=== PATIENT | male | born 1965 | race Caucasian/White ===

== ENCOUNTER → 2023-04-01 | Outpatient (CLI) | payer OTHER, SELFPAY ==
--- NOTE | 2023-04-01 09:53 | PFTCOMP_ITS ---
COMPLETE PULMONARY FUNCTION TEST INTERPRETATION Brief HPI: Patient is a 57-year-old male, currently under the care of Dr. Farrar, who presents to [facility] for complete pulmonary function tests secondary to diagnosis of asthma. Respiratory therapist reports good effort and reproducible results. Interpretation: Forced expiration spirometry shows no large airways obstructive ventilatory defect with an FEV1 of 83% predicted. There is no significant bronchodilator response by strict ATS criteria. Spirograms are of good quality and plateau slowly, indicating slowly emptying areas of the lungs. The respiratory flow volume loop shows decreased expiratory flow rates at all lung volumes consistent with airway obstruction. Lung volumes by body plethysmography show a mild reduction in total lung capacity at 5.52 L, 75% predicted. All other lung volumes are reduced symmetrically reduced. Diffusion capacity by carbon monoxide is normal at 87% predicted. The airway resistance is elevated. No previous pulmonary function tests were available for review. Impression: Mild restrictive ventilatory defect with relatively preserved diffusion capacity, but some subtle signs of small airways obstruction
== END | disposition home or self-care (01) ==
LOC: PSN 07:40
PROVIDERS: PCP Family Medicine; Referring Provider Chiropractor; Visit Provider Chiropractor
DX: J45.998 Other asthma (principal)
CPT/HCPCS: 94060; 94726; 94729